=== PATIENT | male | born 1995 | race Caucasian/White ===

== ENCOUNTER 2019-11-09 01:13 | Emergency (ER) | payer OTHER, BC ==
[2019-11-09 01:33] VITALS: BP 129/90; PULSE 84; RESP 20; TEMP 98
--- NOTE | 2019-11-09 02:10 | XR ---
EXAMINATION TYPE: XR hand complete RT DATE OF EXAM: 11/09/2019 COMPARISON: NONE HISTORY: Thumb pain TECHNIQUE: 3 views FINDINGS: Metacarpals are intact. I see no fracture nor dislocation. Joint spaces are normal. There a re no pathologic calcifications. Thumb appears intact. IMPRESSION: Negative right hand exam. No fracture.
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
== END 2019-11-09 02:28 | disposition home or self-care (01) ==
LOC: EC 01:13
DX: S69.81XA Other specified injuries of right wrist, hand and finger(s), initial encounter (principal); S60.512A Abrasion of left hand, initial encounter; V40.5XXA Car driver injured in collision with pedestrian or animal in traffic accident, initial encounter; Y92.410 Unspecified street and highway as the place of occurrence of the external cause; Y93.89 Activity, other specified
CPT/HCPCS: 99284

== ENCOUNTER 2020-07-17 17:39 | Emergency (ER) | payer BC ==
[2020-07-17 17:47] VITALS: BP 137/84; PULSE 69; RESP 18; TEMP 97.9
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
--- NOTE | 2020-07-17 19:07 | XR ---
EXAMINATION TYPE: XR chest 2V DATE OF EXAM: 07/17/2020 COMPARISON: NONE HISTORY: Left-sided rib pain. TECHNIQUE: Frontal and lateral views of the chest are obtained. FINDINGS: There is no focal air space opacity, pleural effusion, or pneumothorax seen. The cardiac silhouette size is within normal limits. The osseous structures demonstrate no displaced fracture. IMPRESSION: No acute cardiopulmonary process.
== END 2020-07-17 18:35 | disposition home or self-care (01) ==
LOC: EC 17:39
DX: S22.32XA Fracture of one rib, left side, initial encounter for closed fracture (principal); W50.0XXA Accidental hit or strike by another person, initial encounter; Y93.71 Activity, boxing
CPT/HCPCS: 71046; 99283